=== PATIENT | male | born 1990 | race Caucasian/White ===

== ENCOUNTER 2017-06-07 11:12 | Emergency (ER) | payer MEDICAID ==
[~2017-06-07] VITALS: Ht 177.8 cm; Wt 83.9 kg
[~2017-06-07 11:12] MED LIST: IBUPROFEN800 MG PO; SOMA350 MG PO
[2017-06-07 12:42] LABS: BASOPHILS % (AUTO) 0.7 % (0.0-2.0); LYMPHOCYTES % (AUTO) 30.2 % (20.0-45.0); MEAN CORPUSCULAR HEMOGLOBIN 31.5 PG (27.0-31.0); MEAN CORPUSCULAR HGB CONC 33.4 G/DL (32.0-36.0); MEAN CORPUSCULAR VOLUME 94 FL (80-99); MEAN PLATELET VOLUME 7.3 FL (6.5-10.1); PLATELET COUNT 253 K/UL (150-450); RED BLOOD COUNT 4.43 M/UL (4.70-6.10); RED CELL DISTRIBUTION WIDTH 11.7 % (11.6-14.8); WHITE BLOOD COUNT 8.9 K/UL (4.8-10.8)
[2017-06-07 12:52] LABS: ALANINE AMINOTRANSFERASE 23 U/L (3-41); ALBUMIN/GLOBULIN RATIO 2.1 (1.0-2.7); ANION GAP 12 (5-15); ASPARTATE AMINO TRANSFERASE 28 U/L (5-40); CALCIUM 9.3 mg/dL (8.6-10.2); CARBON DIOXIDE 28 mEQ/L (20-30); CHLORIDE 101 mEQ/L (98-107); CREATININE 1.1 mg/dL (0.7-1.2); GLOMERULAR FILTRATION RATE > 60 mL/min (>60); HEMOLYSIS 7; LIPASE 28 U/L (< 60); POTASSIUM 4.3 mEQ/L (3.4-4.9); SODIUM 141 mEQ/L (135-145); TOTAL PROTEIN 6.7 g/dL (6.6-8.7)
[2017-06-07 12:54] LABS: PROTHROMBIN TIME 10.9 SEC (9.30-11.50)
[2017-06-07 13:24] VITALS: BP 144/81
--- NOTE | 2017-06-07 13:25 | Emergency Room Report ---
History of Present Illness General Chief Complaint: Abdominal Pain Source: Patient, Caregiver Present Illness HPI Patient in rehab and off of opiates and cocaine many weeks. Has had vomiting and epigastric discomfort increased recently. No meds recently. In past had similar improved with Zofran. He doesn't want narcotics. No fevers, diarrhea, dysuria, hematuria. Discomfort is epigastric - alleges pain 8/10 (but more malaise). No change in bowels. No rashes, URI sy, joint pain, COTTER. With recent sobriety, he is worried about liver and kidney function. Denies SI or HI. Allergies: Coded Allergies: No Known Allergies (Unverified , 12/11/12) Patient History Past Medical History: see triage record Social History: Reports: smoking, alcohol use, drug use Social History Narrative Rehab Reviewed Nursing Documentation: PMH: Agreed, PSxH: Agreed Nursing Documentation-PMH Past Medical History: No History, Except For Hx Neurological Problems: Yes - HEROIN ADDICTION Review of Systems All Other Systems: negative except mentioned in HPI Physical Exam Vital Signs Date Time Temp Pulse Resp B/P (MAP) Pulse Ox O2 Delivery O2 Flow Rate FiO2 06/07/17 11:32 98.1 64 20 144/81 96 Room Air Sp02 EP Interpretation: reviewed, normal General Appearance: well appearing, no apparent distress, GCS 15 Head: normocephalic Eyes: bilateral eye normal inspection, bilateral eye PERRL ENT: moist mucus membranes Neck: supple Respiratory: lungs clear, normal breath sounds Cardiovascular #1: regular rate, rhythm Cardiovascular #2: 2+ radial (R) Gastrointestinal: normal inspection, normal bowel sounds, non tender, no mass, non-distended Musculoskeletal: back normal, gait/station normal, normal range of motion Neurologic: alert, oriented x3, grossly normal Psychiatric: anxious Skin: normal inspection, warm/dry Medical Decision Making Diagnostic Impression: Primary Impression: Nausea & vomiting Qualified Codes: R11.2 - Nausea with vomiting, unspecified Additional Impression: Abdominal pain Qualified Codes: R10.13 - Epigastric pain ER Course Patient with epigastric discomfort and NV. DDx GItis, PUD, gastritis, pancreatitis, anxiety amongst others. Evaluation with labs. Treatment with IV hydration and zofran. Labs significant for normal WBC, H/H, lytes, lipase. UA not provided. Tolerated large lunch. No vomiting. Stomach significantly better. Patient stable for outpatient observation and treatment. Laboratory Tests Test 06/07/17 12:19 White Blood Count 8.9 K/UL (4.8-10.8) Red Blood Count 4.43 M/UL (4.70-6.10) L Hemoglobin 14.0 G/DL (14.2-18.0) L Hematocrit 41.8 % (42.0-52.0) L Mean Corpuscular Volume 94 FL (80-99) Mean Corpuscular Hemoglobin 31.5 PG (27.0-31.0) H Mean Corpuscular Hemoglobin Concent 33.4 G/DL (32.0-36.0) Red Cell Distribution Width 11.7 % (11.6-14.8) Platelet Count 253 K/UL (150-450) Mean Platelet Volume 7.3 FL (6.5-10.1) Neutrophils (%) (Auto) 59.0 % (45.0-75.0) Lymphocytes (%) (Auto) 30.2 % (20.0-45.0) Monocytes (%) (Auto) 8.0 % (1.0-10.0) Eosinophils (%) (Auto) 2.0 % (0.0-3.0) Basophils (%) (Auto) 0.7 % (0.0-2.0) Prothrombin Time 10.9 SEC (9.30-11.50) Prothrombin Time INR 1.0 (0.9-1.1) PTT 29 SEC (23-33) Sodium Level 141 mEQ/L (135-145) Potassium Level 4.3 mEQ/L (3.4-4.9) Chloride Level 101 mEQ/L (98-107) Carbon Dioxide Level 28 mEQ/L (20-30) Anion Gap 12 (5-15) Blood Urea Nitrogen 16 mg/dL (7-23) Creatinine 1.1 mg/dL (0.7-1.2) Estimate Glomerular Filtration Rate > 60 mL/min (>60) Glucose Level 95 mg/dL (74-106) Calcium Level 9.3 mg/dL (8.6-10.2) Total Bilirubin 0.2 mg/dL (0.0-1.2) Aspartate Amino Transferase (AST) 28 U/L (5-40) Alanine Aminotransferase (ALT) 23 U/L (3-41) Alkaline Phosphatase 50 U/L (40-129) Total Protein 6.7 g/dL (6.6-8.7) Albumin 4.6 g/dL (3.5-5.2) Globulin 2.1 g/dL Albumin/Globulin Ratio 2.1 (1.0-2.7) Lipase 28 U/L (< 60) Last Vital Signs Date Time Temp Pulse Resp B/P (MAP) Pulse Ox O2 Delivery O2 Flow Rate FiO2 06/07/17 15:14 98.1 69 20 144/81 96 Room Air Status: improved Disposition: HOME, SELF-CARE - rehab Condition: Improved Scripts Famotidine (PEPCID) 20 Mg Tablet 20 MG ORAL DAILY, #7 TAB 0 Refills Prov: Mario Cunningham M.D. 06/07/17 Ondansetron Odt* (ZOFRAN ODT*) 4 Mg Tab.rapdis 4 MG ORAL Q8H Y for Nausea & Vomiting, #10 TAB 1 Refill Prov: Mario Cunningham M.D. 06/07/17 Referrals: NOT CHOSEN [facility]/,REFERRING (PCP) Mario Cunningham M.D. Jun 07, 2017 13:25
[2017-06-07] MEDS ORDERED: ZOFRAN ODT4 MG ORAL (13:27)
[2017-06-07] MEDS ORDERED: PEPCID20 MG ORAL (13:27)
[2017-06-07 15:14] VITALS: BP 144/81
--- NOTE | 2017-06-10 15:31 | Cardiology Report ---
APPROVED REPORT EKG Measurement Heart [id number] Sinus bradycardia Otherwise normal ECG
== END 2017-06-07 14:45 | disposition home or self-care (01) ==
LOC: EMR 12:30
DX: R11.2 Nausea with vomiting, unspecified (principal); R10.13 Epigastric pain; F11.20 Opioid dependence, uncomplicated; F17.200 Nicotine dependence, unspecified, uncomplicated
CPT/HCPCS: 36415; 80053; 83690; 85025; 85610; 85730; 93005; 99284